=== PATIENT | female | born 1950 | race Caucasian/White ===

== ENCOUNTER 2022-11-14 12:55 | Emergency (ER) | payer OTHER ==
[2022-11-14] MEDS ORDERED: Ibuprofen 400 MG Tab PO ONE (13:06)
[2022-11-14] MEDS ORDERED: Acetaminophen/oxyCODONE 325-5 MG Tab PO ONE (13:06)
== END 2022-11-14 15:12 | disposition home or self-care (01) ==
LOC: MW.ED 12:55
DX: S49.92XA Unspecified injury of left shoulder and upper arm, initial encounter (principal); W19.XXXA Unspecified fall, initial encounter; Y93.A1 Activity, exercise machines primarily for cardiorespiratory conditioning; Y92.39 Other specified sports and athletic area as the place of occurrence of the external cause
CPT/HCPCS: 73030-26-LT; 73030-LT; 73070-26-LT; 73070-LT; 73562-26-LT; 73562-LT; 99283